=== PATIENT | female | born 1945 | race Caucasian/White ===

== ENCOUNTER → 2017-01-01 | Outpatient (CLI) | payer BC | LOC: BMCIMAGING 09:57 | PROVIDERS: ATTEND Internal Medicine | DX: M81.0 Age-related osteoporosis without current pathological fracture (principal) ==

== ENCOUNTER → 2017-05-01 | Outpatient (CLI) | payer BC | LOC: BMCIMAGING 08:49 | PROVIDERS: ATTEND Physician Assistant | DX: M19.011 Primary osteoarthritis, right shoulder (principal) ==

== ENCOUNTER → 2017-08-26 | Outpatient (CLI) | payer BC | LOC: BMCIMAGING 07:59 | PROVIDERS: ATTEND Internal Medicine | DX: Z12.31 Encounter for screening mammogram for malignant neoplasm of breast (principal) ==

== ENCOUNTER → 2018-09-16 | Outpatient (CLI) | payer OTHER | LOC: BMCIMAGING 07:47 | PROVIDERS: ATTEND Internal Medicine | DX: Z12.31 Encounter for screening mammogram for malignant neoplasm of breast (principal) ==